=== PATIENT | female | born 1990 | race Native Hawaiian/Other Pacific Islander ===

== ENCOUNTER → 2022-09-25 18:25 | Outpatient (CLI) | payer OTHER, SELFPAY | PROVIDERS: Visit Provider Physician Assistant | DX: R30.0 Dysuria (principal) | CPT/HCPCS: 87077; 87086; 87186 ==

== ENCOUNTER 2024-04-13 22:45 | Emergency (ER) | payer OTHER, SELFPAY ==
[2024-04-13 22:52] VITALS: BP 134/85; PULSE 91; RESP 18; TEMP 37; O2SAT 98; BMI 30.9
--- NOTE | 2024-04-14 00:16 | ED.ALLEREA ---
HPI - Allergic Reaction General Chief complaint: Allergic Reaction Stated complaint: allergic reaction, hives for two weeks Time Seen by Provider: 04/14/24 00:15 Source: patient Mode of arrival: Ambulatory History of Present Illness HPI narrative: patient is a 33-year-old female with no significant endorsed past medical history presenting for 2 weeks of intermittent hives, continued hives now with some mild edema to the lips per her report without shortness of breath, difficulty breathing, nausea vomiting or blood pressure problems. Patient states that she has no past history of allergic reactions to her knowledge, she has not started any new medications recently, she has not ingested any new foods recently. Patient denies any chest pain, shortness of breath at this time. Related Data Home Medications Medication Instructions Recorded Confirmed No Known Home Medications 04/06/24 04/06/24 Allergies Allergy/AdvReac Type Severity Reaction Status Date / Time No Known Drug Allergies Allergy Unverified 04/06/24 18:02 Review of Systems Review of Systems ROS Unobtainable: All systems reviewed & are unremarkable except as noted in HPI and below Patient History Social History Smoking Status: Current every day smoker Smoking Status: Current every day smoker tobacco type: cigarettes Exam Narrative Exam Narrative: General: Well appearing, well nourished, in no distress. Skin: Good turgor, no rash, unusual bruising or prominent lesions. Head: Normocephalic, atraumatic. HEENT: Conjunctiva clear, EOM intact, PERRL, Mucous membranes moist.No significant swelling to the neck, chest, lips or posterior oropharynx. Neck: Supple, normal ROM. Heart: Regular rate and rhythm, no murmur or gallop or rubs. Lungs: Clear to auscultation. No rales rhonchi or wheezes. Abdomen: Soft and non-tender. Bowel sounds normal. No mass or hernia. Back: Spine normal without deformity or tenderness, no CVA tenderness. Extremities: No deformities, edema. Peripheral pulses intact. Neurologic: CN 2-12 normal. Normal sensation and motor exam. Psychiatric: Oriented X3. Normal mood and affect. Initial Vital Signs Initial Vital Signs: Vital Signs Temperature 98.6 F 04/13/24 22:52 Pulse Rate 91 H 04/13/24 22:52 Respiratory Rate 18 04/13/24 22:52 Blood Pressure 134/85 04/13/24 22:52 Pulse Oximetry 98 04/13/24 22:52 Oxygen Delivery Method Room Air 04/13/24 22:52 Course Orders Ordered: Discontinued Medications Diphenhydramine HCl (Diphenhydramine 25 Mg Tablet) 50 mg PO NOW ONE Stop: 04/14/24 00:16 Last Admin: 04/14/24 00:37 Dose: 50 mg Documented By: Famotidine (Famotidine 20 Mg Tablet) 20 mg PO BID BRIAN Last Admin: 04/14/24 00:37 Dose: 20 mg Documented By: Prednisone (Prednisone 20 Mg Tablet) 40 mg PO NOW ONE Stop: 04/14/24 00:16 Last Admin: 04/14/24 00:37 Dose: 40 mg Documented By: Vital Signs Vital signs: Vital Signs - 8 hr 04/14/24 01:24 Pulse Rate 82 Respiratory Rate 16 Blood Pressure 122/80 Pulse Oximetry 98 Oxygen Delivery Method Room Air MDM - Allergic Reaction MDM Narrative Medical decision making narrative: Well-appearing 33-year-old female who presents to the emergency department for intermittent hives for the last 2 weeks, feeling of swelling in her lips without difficulty breathing, change in voice, difficulty tolerating secretions. Unknown recent trigger no new meds foods or exposures to her knowledge. Differential diagnosis includes but is not limited to allergic reaction, anaphylaxis, medication side effect, infection on exam patient has no signs of urticaria no signs of swelling in the posterior oropharynx no lip swelling, no uvula deviation or change in voice, trismus or other concerning features. She states that her previous urticaria and swelling has now pretty much resolved. Patient given a dose of Benadryl in order to help with symptoms and I encouraged her to go see an floral design teacher in the future, no signs of medication abnormality on review of medication list Discharge Plan Departure Patient Disposition: Home Clinical Impression: Allergic reaction Instructions: DI for Anaphylaxis, DI for Hives Activity Restrictions/Additional Instructions: please see an floral design teacher in the future for further workup of your intermittent urticaria, please talk to your PCP if you have symptoms please take some Benadryl and return to the emergency department if it does not resolve or he began to have shortness of breath difficulty swallowing significant vomiting or altered mental status. Prescriptions: No Action No Known Home Medications Referrals: Miscellaneous,Doctor MD [Primary Care Provider] - Stand Alone Forms: Patient Portal/API/Survey
[2024-04-14] MEDS: diphenhydrAMINE 25 MG TABLET 50 MG PO (00:37)
[2024-04-14] MEDS: predniSONE 20 MG TABLET 40 MG PO (00:37)
[2024-04-14] MEDS: FAMOTIDINE 20 MG TABLET PO (00:37)
[2024-04-14 01:24] VITALS: BP 122/80; PULSE 82; RESP 16; O2SAT 98
== END 2024-04-14 01:28 | disposition home or self-care (01) ==
PROVIDERS: Emergency Provider Emergency Medicine
DX: T78.40XA Allergy, unspecified, initial encounter (principal)
CPT/HCPCS: 99283; A9270

== ENCOUNTER 2024-04-14 21:02 | Emergency (ER) | payer OTHER, SELFPAY ==
[2024-04-14 21:11] VITALS: BP 124/72; PULSE 92; RESP 18; TEMP 37.1; O2SAT 100; BMI 30.9
--- NOTE | 2024-04-14 21:16 | ED.GENADULT ---
HPI - General Adult General Chief complaint: Allergic Reaction Stated complaint: Sore throat and hives last 2wks; not improving Time Seen by Provider: 04/14/24 21:16 History of Present Illness HPI narrative: 33-year-old female without any significant past medical history comes into the ED from home for persistent allergic reaction symptoms. So states that she was seen here for the same on 04/13/2024. At that time was complaining of 2 weeks of intermittent hives, patient was given Benadryl famotidine steroids with improvement on symptoms and discharged home with referral to associate professor of automation. She presents given she states that she started having allergic reaction symptoms again states that she felt like her left eye was swollen felt like she had a tickle in the back of her throat but denied any actual difficulty breathing swallowing, did take 50 mg of Benadryl prior to arrival. At time of evaluation patient well-appearing nontoxic speaking full sentences protecting airway not in anaphylaxis shock. Patient states that she has no known allergies. Related Data Previous Rx's Medication Instructions Recorded epinephrine 0.3 mg/0.3 mL 0.3 mg (0.3 mL) IM Q5-15M PRN 04/14/24 injection, auto-injector (EpiPen) anaphylaxis #2 ea famotidine 20 mg tablet (Pepcid) 20 mg PO DAILY 5 days #5 tabs 04/14/24 prednisone 20 mg tablet 40 mg (2 x 20 mg) PO DAILY 5 days 04/14/24 #10 tabs Allergies Allergy/AdvReac Type Severity Reaction Status Date / Time No Known Drug Allergies Allergy Unverified 04/06/24 18:02 Review of Systems Review of Systems Narrative: General: Positive allergic reaction, Denies fever, chills, weight loss HEENT: Positive left eye swelling, Denies headache, eye drainage, eye irritation, head trauma, sore throat, voice change Cardiovascular: Denies any chest pain, palpitations, shortness of breath, tachycardia Respiratory: Denies any shortness of breath, cough, wheeze, stridor GI/: Denies any abdominal pain, nausea, vomiting, diarrhea, bright red blood per rectum, melanotic stools, urinary frequency, urinary retention, dysuria, hematuria MSK: Denies any joint pain, muscle pains, swelling Skin: Denies any rashes, lesions, discoloration Neuro: Denies any headache, lightheadedness, dizziness, fainting, weakness Psych: Denies SI/HI Patient History Social History Smoking Status: Current every day smoker Smoking Status: Current every day smoker tobacco type: cigarettes Exam Narrative Exam Narrative: General: Cooperative, comfortable, well-developed, not in acute distress HEENT: Posterior oropharynx clear without any signs of obstruction, uvula is midline, patient is speaking full sentences protecting airway no voice changes no stridor no trismus, tolerating secretions Normocephalic, atraumatic, PERRLA, normal sclera, eyelids normal, Neck: Active full range of motion, atraumatic Chest: Normal to inspection, negative crepitus, no overlying erythema ecchymosis Respiratory: Normal respiratory effort, not in acute respiratory distress, clear to auscultation bilaterally negative cough, wheeze, tachypnea, rhonchi, rales Cardiology: Regular rate rhythm negative gallop, murmur, rubs GI/: Normal to inspection, soft, nonrigid, no tenderness to palpation, exam deferred MSK: Full range of active range of motion of all 4 extremities, atraumatic Skin: No rashes lesions noted Neuro: Alert awake oriented x3, moves all 4 extremities spontaneously, cranial nerves intact, able to answer all questions appropriately follows commands appropriately Psych: Cooperative, negative suicidal or homicidal ideations Initial Vital Signs Initial Vital Signs: Vital Signs Temperature 98.7 F 04/14/24 21:11 Pulse Rate 92 H 04/14/24 21:11 Respiratory Rate 18 04/14/24 21:11 Blood Pressure 124/72 04/14/24 21:11 Pulse Oximetry 100 04/14/24 21:11 Oxygen Delivery Method Room Air 04/14/24 21:11 Course Orders Ordered: Discontinued Medications Famotidine (Famotidine 20 Mg Tablet) 20 mg PO NOW ONE Stop: 04/14/24 21:36 Last Admin: 04/14/24 21:38 Dose: 20 mg Documented By: MR Prednisone (Prednisone 20 Mg Tablet) 60 mg PO NOW ONE Stop: 04/14/24 21:36 Last Admin: 04/14/24 21:38 Dose: 60 mg Documented By: MR Vital Signs Vital signs: Vital Signs - 8 hr 04/14/24 21:11 Temperature 98.7 F Pulse Rate 92 H Respiratory Rate 18 Blood Pressure 124/72 Pulse Oximetry 100 Oxygen Delivery Method Room Air Medical Decision Making Differential Diagnosis Differential Diagnosis: Anaphylaxis, allergic reaction, urticaria MDM Narrative Medical decision making narrative: 33-year-old female without any significant past medical history presents for possible allergic reaction. She states that she has been having intermittent urticarial rashes for the past 3 weeks, states that she was seen here previously for similar was given symptomatic relief and discharged home with referral to associate professor of automation. She states that she is not able to get into an associate professor of automation for 1 month. She presents today due to persistent allergic like reaction. She states that today into yesterday she noticed intermittent swelling of her left eye lid, as well as a scratchy throat today. She states that she gave herself Benadryl 50 mg prior to arrival with improvement of symptoms. At time of evaluation patient is speaking full sentences protecting airway, not in respiratory distress. Posterior oropharynx is clear without any signs of obstruction. Patient not requiring epinephrine at evaluation. There is no overt signs of urticaria, patient states that she has been treating her symptoms intermittently with Benadryl with relief but does not know any known allergies. Patient was given prednisone as well as Pepcid here with improvement of symptoms. She will be sent home with Pepcid steroids as well as EpiPen and instructed to follow up with primary care and associate professor of automation in outpatient setting. She was given strict return precautions she verbalized understanding of this and agrees to being discharged home with outpatient follow up Discharge Plan Departure Patient Disposition: Home Clinical Impression: Allergic reaction Instructions: DI for Anaphylaxis, Epinephrine Injection Activity Restrictions/Additional Instructions: Please follow up with primary care and associate professor of automation Please read the discharge instructions sheet carefully and bring all papers to all doctor follow-up visits, as it may contain information that your doctor may want to see. Disease processes change and evolve, if your symptoms worsen or if you develop any new symptoms that are concerning to you please return for evaluation. Your evaluation today does not show any evidence of any life-threatening/serious illnesses requiring admission to the hospital or surgery. Please follow-up with your doctor for re-evaluation in approximately 1 day. Seek immediate medical attention for any worrisome symptoms. *If you do not have a primary care provider please contact the [facility] Resource line at [phone]. They will ask some questions about your medical history and help get you set up with a doctor in the community. Prescriptions: New prednisone 20 mg tablet 40 mg PO DAILY 5 Days Qty: 10 0RF famotidine [Pepcid] 20 mg tablet 20 mg PO DAILY 5 Days Qty: 5 0RF epinephrine [EpiPen] 0.3 mg/0.3 mL auto-injector 0.3 mg IM Q5-15M PRN (Reason: anaphylaxis) Qty: 2 2RF Rx Instructions: do not exceed 3 doses per episode Referrals: Miscellaneous,Doctor, MD [Primary Care Provider] - Stand Alone Forms: Patient Portal/API/Survey
[2024-04-14] MEDS: predniSONE 20 MG TABLET 60 MG PO (21:38)
[2024-04-14] MEDS: FAMOTIDINE 20 MG TABLET PO (21:38)
[2024-04-14 22:31] VITALS: BP 103/64; PULSE 70; RESP 12; TEMP 36.5; O2SAT 99
== END 2024-04-14 22:32 | disposition home or self-care (01) ==
PROVIDERS: Emergency Provider Student in an Organized Health Care Education/Training Program
DX: T78.40XA Allergy, unspecified, initial encounter (principal)
CPT/HCPCS: 99283; A9270